=== PATIENT | male | born 2000 | race Caucasian/White ===

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

== ENCOUNTER 2023-10-01 06:30 | Day surgery (SDC) | payer OTHER ==
[~2023-10-01 06:30] MED LIST: ACETAMINOPHEN TAB 500 MG TAB ONE; DEXAMETHASONE SOD PHOSPHATE 4 MG/ML 1 ML VIAL ONE; HEPARIN SODIUM,PORCINE 5,000 UNIT/ML 1 ML VIAL ONE; ONDANSETRON 4 MG/2 ML VIAL ONE
[2023-10-01] MEDS ORDERED: GLYCOPYRROLATE 0.2 MG/ML 2 ML VIAL ONE (07:22)
[2023-10-01] MEDS ORDERED: MIDAZOLAM 2 MG/2 ML VIAL ONE (07:22)
[2023-10-01] MEDS ORDERED: PHENYLEPHRINE-0.9% NACL SYG 1,000 MCG/10 ML SYRINGE ONE (07:22)
[2023-10-01] MEDS ORDERED: NEOSTIGMINE 1 MG/ML 10 ML VIAL ONE (07:22)
[2023-10-01] MEDS ORDERED: PROPOFOL 10 MG/ML 20 ML VIAL IV ONE (07:22)
[2023-10-01] MEDS ORDERED: fentaNYL (PF) 50 MCG/ML 2 ML AMP ONE (07:22)
[2023-10-01] MEDS ORDERED: ROCURONIUM 10 MG/ML (5 ML VIAL) IV ONE (07:22)
[2023-10-01] MEDS ORDERED: KETOROLAC 15 MG/ML 1 ML VIAL ONE (09:16)
[2023-10-01] MEDS ORDERED: HYDROmorphone 0.5 MG/0.5 ML SYRINGE ONE ×2 (09:19→09:28)
[2023-10-01] MEDS ORDERED: SODIUM CHLORIDE 0.9% IRRIG 1,000 ML BTL IRRIGATION ONE (17:30)
[2023-10-01] MEDS ORDERED: BUPIVACAINE (PF) 0.25% 30 ML VIAL ONE (17:30)
[2023-10-01] MEDS ORDERED: LACTATED RINGERS 1,000 ML BAG ONE (17:30)
--- NOTE | 2023-10-12 15:52 | OP ---
OPERATIVE REPORT DATE OF SERVICE : 10/01/2023 PREOPERATIVE DIAGNOSIS: Reducible incisional hernia. POSTOPERATIVE DIAGNOSIS: Reducible incisional hernia. PROCEDURES PERFORMED: Open repair of reducible incisional hernia with mesh. ANESTHESIA: General. COMPLICATIONS: None. DESCRIPTION OF PROCEDURE: The patient was brought and placed on the OR table in a supine position. The patient was placed under general anesthesia. The right abdomen was prepped and draped sterilely. The previous transverse paramedian incision was reexcised. There was some scar here. The subcutaneous tissues were then divided using electrocautery. The patient's fascial defect was circumferentially dissected. The patient had a weak fascia with multiple small holes throughout. After we debrided the attenuated fascia, we had a fascial defect measuring 3.5 x 2 cm. The space beneath the muscle was carefully dissected using both blunt dissection, electrocautery, and sharp dissection. There were a few small bleeding vessels on the omentum that were ligated using 3-0 silk ties. There was only multiple bowel visualized inferiorly which was protected during the procedure. Once we had adequate space, the 6.4 cm Ventralex mesh was placed beneath the muscle and sutured to the muscular layers using transfascial 0 Ethibond sutures. Following that, the defect was closed transversely using [id number] interrupted horizontal mattress 0 Ethibond sutures. The folding edge was sutured down using 4-0 Ethibond sutures as well. The subcutaneous layer was then closed using interrupted 3-0 Vicryl sutures. The skin was closed using a running 4-0 Monocryl suture. Skin glue and sterile dressings were applied. MMODL / IJN: [id number] /
== END 2023-10-01 11:05 ==
LOC: OR 06:30
PROVIDERS: ATTEND Surgery
DX: K43.2 Incisional hernia without obstruction or gangrene
CPT/HCPCS: 88302